=== PATIENT | female | born 1995 | race Caucasian/White ===

== ENCOUNTER 2019-09-27 09:14 | Emergency (ER) | payer BC, OTHER ==
--- NOTE | 2019-09-27 09:17 | PDOC ---
History of Present Illness - General Stated Complaint: N/V/D FOR A WEEK Time Seen by Provider: 09/27/19 09:16 - History of Present Illness Initial Comments: 09/27/19 10:03 24yo female presents ambulatory to the ER c/o diarrhea x 1 week. Pt states last sunday she had 1 episode of nbnb vomiting. States about 10-12 episodes of diarrhea day and this AM was concerned she may have seen blood in the stool. Pt states abd cramping- but states also due for her menstrual cycle. 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 Pt denies eating emory lettuce, but states she has been eating raw cookie dough. Pt states she again at raw cookie dough last night at her mothers house. Pt denies recent abx, recent travel, or recent sick contacts. Pt denies assoc cp/sob. No f/c. No dysuria. No vaginal complaints. States cramping in lower abd. Pt states stool is now "muddy" appeararing. Denies rectal pain, hemorrhoids. No other complaints. Pmhx: denies Pshx: denies All: nkda Past History - Past Medical History Allergies/Adverse Reactions: Allergies Allergy/AdvReac Type Severity Reaction Status Date / Time No Known Allergies Allergy Verified 09/27/19 09:18 Home Medications: Ambulatory Orders Norgestimate-Ethinyl Estradiol [Tri-Previfem] 1 each PO DAILY 08/25/15 Terconazole [Terazol 3] 80 mg VG HS #3 supp.vag 08/25/15 - Immunization History Immunization Up to Date: Yes - Psycho Social/Smoking Cessation Hx Smoking History: Former smoker Have you smoked in the past 12 months: No Hx Alcohol Use: No Drug/Substance Use Hx: Yes (marijuna) Substance Use Type: Marijuana Review of Systems - Review of Systems Able to Perform ROS?: Yes Is the patient limited [place] proficient: No Constitutional: No: Chills, Fever HEENTM: No: Nose Congestion, Throat Pain Respiratory: No: Cough, Shortness of Breath Cardiac (ROS): No: Chest Pain ABD/GI: Yes: Diarrhea, Nausea, Vomiting, Abdominal cramping : No: Burning, Dysuria Musculoskeletal: No: Back Pain Integumentary: No: Rash Neurological: No: Headache, Numbness, Paresthesia All Other Systems: Reviewed and Negative *Physical Exam - Vital Signs 09/27/19 10:07 Selected Entries 09/27/19 09:15 Temperature 98.3 F Pulse Rate 71 Respiratory 18 Rate Blood Pressure 104/66 Blood Pressure 78 Mean O2 Sat by Pulse 100 Oximetry (%) Weight 52.163 kg - Physical Exam General Appearance: Yes: Nourished, Appropriately Dressed. No: Apparent Distress HEENT: positive: EOMI, Normal Voice, Pharynx Normal Neck: positive: Supple Respiratory/Chest: positive: Lungs Clear, Normal Breath Sounds. negative: Respiratory Distress Cardiovascular: positive: Regular Rhythm, Regular Rate, S1, S2. negative: Edema Gastrointestinal/Abdominal: positive: Normal Bowel Sounds, Flat, Soft. negative : Guarding, Rebound, Tenderness Rectal Exam: positive: normal exam, normal rectal tone. negative: hemorrhoids Musculoskeletal: positive: Normal Inspection. negative: CVA Tenderness Extremity: positive: Normal Capillary Refill, Normal Inspection, Normal Range of Motion, Other (ambulatory in the ED with a steady gait) Integumentary: positive: Normal Color, Dry, Warm Neurologic: positive: Fully Oriented, Alert, Normal Mood/Affect, Normal Response , Other (moving all extremities evenly, ambulatory in the ED) ED Treatment Course - LABORATORY CBC & Chemistry Diagram: 09/27/19 09:40 09/27/19 09:40 Medical Decision Making - Medical Decision Making 09/27/19 10:08 a/p: 24yo female with n/v x 1 day and a week of diarrhea -pt without abd pain, soft, nt/nd -has been eating raw cookie dough and does handle raw poultry at work -poss of blood this AM -rectal with empty vault, no hemorrhoids, fissures, masses, normal tone -will send labs, hydrate -will send stool studies -will monitor and reassess 09/27/19 11:20 pt gave stool sample discussed labs no elevated wbc ua neg chem reviewed with the patient. 09/27/19 11:46 no blood in stool 09/27/19 12:26 stool studies pending normal labs stable for dc to home will give pmd and gi follow up discussed pt will be called for lab follow up on stool studies no abx at this time discussed po intake and all reasons to return to the ED. Discharge - Discharge Information Problems reviewed: Yes Clinical Impression/Diagnosis: Diarrhea Condition: Stable Disposition: HOME - Admission No - Follow up/Referral Referrals: Layton Wilson MD [Staff Physician] - Henny Morgan MD [Staff Physician] - - Patient Discharge Instructions Patient Printed Discharge Instructions: DI for Diarrhea and Traveler's Diarrhea -- Adult Additional Instructions: Please drink plenty of clear liquids. Please keep yourself well hydrated. Please eat the brat diet (bananas, rice, apple sauce, and toast). Your stool studies are still pending and we will call you if there are any abnormal results. Please practice good hand washing. Please return to the ED with any further concerns or complaints. Please follow up with the PMD and the GI this week- please call to make an appointment. - Post Discharge Activity Work/Back to School Note: Back to Work
[2019-09-27 09:23] VITALS: TEMP 98.3; BMI 19.7
[2019-09-27] MEDS ORDERED: SODIUM CHLORIDE 0.9% 1000 ML INFUS.BAG IV ONE (09:33)
[2019-09-27 09:54] LABS: BASO % 0.3 % (0-2.0); EOS % 2.4 % (0-4.5); HEMATOCRIT 41.8 % (32.4-45.2); HEMOGLOBIN 14.1 GM/dl (10.7-15.3); LYMPH % 25.4 % (8-40); MCH 30.7 pg (25.7-33.7); MCHC 33.7 g/dl (32.0-36.0); MEAN CELL VOLUME 91.3 fl (80-96); MEAN PLT VOLUME 9.5 fl (7.5-11.1); MONO % 17.1 % (3.8-10.2); NEUT % 54.8 % (42.8-82.8); PLATELET COUNT 194 K/MM3 (134-434); RBC 4.57 M/mm3 (3.60-5.2); RDW 12.2 % (11.6-15.6); WHITE BLOOD COUNT 6.6 K/mm3 (4.0-10.8)
[2019-09-27 10:02] LABS: ALBUMIN 3.6 g/dl (3.4-5.0); BILIRUBIN,TOTAL 0.3 mg/dl (0.2-1); CALCIUM 8.6 mg/dl (8.5-10); CREATININE 0.7 mg/dl (0.55-1.3); POTASSIUM 3.7 mmol/L (3.5-5.1); TOT PROT 6.1 g/dl (6.4-8.2)
[2019-09-27 10:04] LABS: EPITHELIAL CELLS MODERATE /hpf
[2019-09-27 10:05] LABS: CALCIUM OXALATE CRYSTALS FEW /hpf (NONE SEEN)
[2019-09-27 12:42] VITALS: BP 98/62; PULSE 78
== END 2019-09-27 12:41 | disposition home or self-care (01) ==
LOC: FER 09:14
PROC: 3E0337Z Introduction of Electrolytic and Water Balance Substance into Peripheral Vein, Percutaneous Approach (ICD-10-PCS; principal; 2019-09-27)
DX: R19.7 Diarrhea, unspecified (principal); Z87.891 Personal history of nicotine dependence
CPT/HCPCS: 36415; 80053; 81003; 81015; 82272; 84703; 85025; 87045; 87046; 87177; 87209; 99283-25; J7030